=== PATIENT | male | born 1965 | race Caucasian/White ===

== ENCOUNTER 2023-11-22 20:38 | Emergency (ER) | payer BC ==
[~2023-11-22] VITALS: Ht 177.8 cm; Wt 88.5 kg
[2023-11-22 21:04] VITALS: BP_SYST 139; PULSE 91; RESP 19; TEMP 97.6
[2023-11-22] MEDS: TETRACAINE HCL/PF 0.5% OPHTHALMIC DROPS 4 ML OP ONE (23:40)
[2023-11-22] MEDS ORDERED: FLOEARD RIGHT EYE (23:41)
[2023-11-22 23:49] VITALS: BP_SYST 139; PULSE 91; RESP 19; TEMP 97.6
== END 2023-11-22 23:14 | disposition home or self-care (01) ==
LOC: SED 20:38
DX: T15.01XA Foreign body in cornea, right eye, initial encounter (principal); Z79.899 Other long term (current) drug therapy; X58.XXXA Exposure to other specified factors, initial encounter; Y93.89 Activity, other specified; Y92.89 Other specified places as the place of occurrence of the external cause; Y99.8 Other external cause status
CPT/HCPCS: 99284